=== PATIENT | female | born 1975 | race Caucasian/White ===

== ENCOUNTER 2016-07-07 07:38 | Emergency (ER) | payer MEDICAID ==
--- NOTE | 2016-07-07 07:55 | Emergency Department Record ---
History of Present Illness - General Chief complaint: Pain Stated complaint: KIDNEY SURGERY RECENTLY Time Seen by Provider: 07/07/16 07:54 Source: Patient Mode of Arrival: Ambulatory Limitations: No limitations - History of Present Illness Initial comments: The patient is here due to not feeling well for one day. She has felt slightly weak and chilled off and on since last night. The patient states she had Kidney [place] 6 [place] [facility] [place] and had a robotic kidney cyst removal and a bladder sling placed. She is concerned something may be wrong due to not feeling well now. There has been no fever, vomiting, dysuria, diarrhea, but she is having slightly more R kidney area pain at times. MD Complaint: Other Onset/Timin -: Days(s) Location: Right, Other History of Same: No Radiation: None Severity scale (1-10): 4 Consistency: Constant Improves with: Nothing Worsens with: Nothing Associated Symptoms: Denies other symptoms - Related Data Home Medications Medication Instructions Recorded Confirmed Last Taken Cyanocobalamin (Vitamin B-12) 1 tab PO DAILY 08/09/15 07/07/16 Unknown [Vitamin B-12] Allopurinol 100 mg PO BID tab 09/06/15 07/07/16 Unknown Hydrochlorothiazide 12.5 mg PO QD cap 09/06/15 07/07/16 Unknown Lactobacillus Combo No.11 1 each PO DAILY 09/06/15 07/07/16 Unknown [Probiotic] Potassium Citrate [Potassium 10 meq PO BID 09/06/15 07/07/16 Unknown Citrate Er] Docusate Sodium [Colace] 100 mg PO DAILY 07/07/16 07/07/16 Unknown Hydrocodone/Acetaminophen 1 tab PO Q6H 07/07/16 07/07/16 Unknown [Hydrocodon-Acetaminophen 5-325] Previous Rx's Medication Instructions Recorded Sulfamethoxazole/Trimethoprim 1 tab PO BID #14 tab 07/07/16 [Bactrim Ds] Sulfamethoxazole/Trimethoprim 1 tab PO BID #14 tab 07/07/16 [Bactrim Ds] Allergies Allergy/AdvReac Type Severity Reaction Status Date / Time Neuromuscular Blockers, Allergy Severe BEHAVIORAL Verified 07/07/16 07:53 Steroidal CHANGES [Steroidal Neuromuscular Blockers] ciprofloxacin Allergy Intermediate RASH Verified 07/07/16 07:53 morphine Allergy Intermediate hives Verified 07/07/16 07:53 Travel Screening - Travel/Exposure Within Last 30 Days Have you traveled within the last 30 days?: No Review of Systems Constitutional: Reports: Chills, Malaise. Denies: Fever Eyes: Denies: Eye discharge ENT: Reports: Throat pain (since surgery.). Denies: Congestion Respiratory: Denies: Cough, Dyspnea Cardiovascular: Denies: Arrhythmia, Chest pain Past Medical History - SOCIAL HISTORY Smoking Status: Never smoker Alcohol Use: None Drug Use: None - RESPIRATORY Hx Respiratory Disorders: Yes Hx Pneumonia: Yes - CARDIOVASCULAR Hx Cardio Disorders: No - NEURO Hx Neuro Disorders: Yes Hx Headaches: Yes - GI Hx GI Disorders: Yes Comment:: ulcertive colitis - Hx Genitourinary Disorders: Yes Hx Bladder Problem: Yes Comment:: kidney cyst, medullary sponge dx - ENDOCRINE Hx Endocrine Disorders: Yes Hx Thyroid Disease: Yes (thyroid CA) Comment:: hasimoto's thyroiditis - MUSCULOSKELETAL Hx Musculoskeletal Disorders: Yes Hx Arthritis: Yes Comment:: neck - PSYCH Hx Anxiety: Yes Comment:: OCD - HEMATOLOGY/ONCOLOGY Hx Hematology/Oncology Disorders: Yes Hx Cancer: Yes Hx Chemotherapy: No Hx Radiation Therapy: No Family Medical History Any Significant Family History?: Yes Hx Heart Disease: Mother Hx Resp Disorders: Mother Physical Exam - General General Appearance: Alert, Oriented x3, Cooperative, No acute distress - Head Head exam: Atraumatic, Normocephalic, Normal inspection - Eye Eye exam: Normal appearance, PERRL - ENT Throat exam: Normal inspection. negative: Tonsillar erythema, Tonsillar exudate - Neck Neck exam: Normal inspection, Full ROM. negative: Tenderness - Respiratory Respiratory exam: Normal lung sounds bilaterally. negative: Respiratory distress - Cardiovascular Cardiovascular Exam: Regular rate, Normal rhythm, Normal heart sounds - GI/Abdominal GI/Abdominal exam: Soft, Normal bowel sounds, Other (The surgical sites appear very clean and healthy with no signs of infection.). negative: Distended, Guarding, Tenderness - Extremities Extremities exam: Normal inspection, Full ROM, Normal capillary refill. negative: Tenderness - Neurological Neurological exam: Normal gait. negative: Abnormal gait Course Vital Signs 07/07/16 07:44 Temperature 97.9 F Pulse Rate 78 Respiratory 16 Rate Blood Pressure 118/86 Pulse Ox 97 - Reevaluation(s) Reevaluation #1: The patient is doing well at this time. She is resting comfortably with no new complaints. 07/07/16 08:40 Reevaluation #2: The patient is doing very well at this time. She is having mild R flank pain but is declining any pain medicines. I did discuss the CT results with her which do appear to have normal post op changes. I also did discuss the eval with Dr. Moreno and he would like the patient on an oral Abx and would like her to F/U as directed. 07/07/16 10:01 Medical Decision Making - Data Complexity MDM Data: Labs Ordered and/or Reviewed, X-Ray Ordered and/or Reviewed - Lab Data Result diagrams: 07/07/16 08:10 07/07/16 08:10 - Radiology Data Radiology results: Report reviewed (CT: Small R pleural effusion, Min inflammation around the R kidney prob normal postop changes. O/W neg.) Disposition Disposition: Discharge Clinical Impression: Post-op pain Disposition: Home, Self-Care Condition: (1) Good Instructions: Flank Pain (ED) Additional Instructions: Please continue your home pain medicines as directed. Continue the Bactrim as directed. Please see Dr. Moreno as previously planned post op. Please see him sooner for any increased pain, fever, or vomiting. Prescriptions: Sulfamethoxazole/Trimethoprim [Bactrim Ds] 1 tab PO BID #14 tab Sulfamethoxazole/Trimethoprim [Bactrim Ds] 1 tab PO BID #14 tab Forms: Patient Portal Access Time of Disposition: 10:04
[2016-07-07] MEDS ORDERED: 0.9 % SODIUM CHLORIDE 1,000 ML BAG IV ONE (07:58)
[2016-07-07 08:19] LABS: BASO % 0.1 % (0-6); EOS % 3.8 % (0-6); GRAN % 71.7 % (47-80); HEMATOCRIT 37.2 % (35.0-47.0); HEMOGLOBIN 12.8 gm/dl (11.6-16.0); LYMPH % 18.3 % (16-45); MEAN CELL VOLUME 88.4 fl (81-97); MEAN CORPUSCULAR HEMOGLOBIN 30.4 pg (27-33); MEAN CORPUSCULAR HGB CONC 34.4 g/dl (32-36); MEAN PLATELET VOLUME 9.8 fl (7.4-10.4); MONO % 6.1 % (0-9); PLATELET COUNT 327 K/uL (130-400); RED BLOOD COUNT 4.21 M/uL (3.80-5.40); RED CELL DISTRIBUTION WIDTH 12.9 % (11.5-14.5); WHITE BLOOD COUNT W/O DIFF 8.2 K/uL (4.2-12.2)
[2016-07-07 08:21] LABS: URINE APPEARANCE CLEAR; URINE BILIRUBIN NEGATIVE (NEGATIVE); URINE BLOOD TRACE-I (NEGATIVE); URINE COLOR YELLOW; URINE GLUCOSE (UA) NEGATIVE (NEGATIVE); URINE KETONE NEGATIVE (NEGATIVE); URINE LEUKOCYTE ESTERASE TRACE (NEGATIVE); URINE NITRITE NEGATIVE (NEGATIVE); URINE PROTEIN NEGATIVE (NEGATIVE); URINE UROBILINOGEN 0.2 E.U./dL (0.20 - 1.00)
[2016-07-07 08:31] LABS: HCG,QUALITATIVE URINE NEGATIVE (NEGATIVE); URINE BACTERIA FEW
[2016-07-07 08:34] LABS: ALKALINE PHOSPHATASE 94 U/L (38-126); ALT/SGPT 81 U/L (9-52); AST/SGOT 31 U/L (14-36); BILIRUBIN,TOTAL 0.39 mg/dL (0.2-1.3); BLOOD UREA NITROGEN 13 mg/dL (7-17); CREATININE 0.6 mg/dL (0.52-1.04); EST GLOMERULAR FILTRATION RATE > 60 ml/min; GLUCOSE,RANDOM 106 mg/dL (70-110); LIPASE 16 U/L (23-300); TOTAL PROTEIN 7.3 gm/dL (6.3-8.2)
[2016-07-07] MEDS ORDERED: TMP/SMZ 160MG/800MG TAB PO ONE (09:52)
== END 2016-07-07 10:26 | disposition home or self-care (01) ==
LOC: ER 07:38
DX: N23 Unspecified renal colic (principal); G89.18 Other acute postprocedural pain
CPT/HCPCS: 99284 ×2; 83690; 85025; 80076; 80048; 81001; 81025; 74176; J3490; J7030

== ENCOUNTER 2017-01-08 08:05 | Day surgery (SDC) | payer MEDICAID ==
--- NOTE | 2017-01-08 13:24 | ULTRASOUND REPORT ---
EXAM: ABDOMEN ULTRASOUND HISTORY: CHRONIC GENERALIZED ABDOMINAL PAIN. TECHNIQUE: Real-time nicholas scale sonographic imaging of the abdomen was performed. Comparison: Abdomen CT 07/07/16. FINDINGS: Uniformly echogenic focus in the right lobe of the liver measuring 2.3 cm with corresponding hypodensity in the right lobe of the liver on CT's dating back to 2015 consistent with benign hemangioma. The remaining liver is homogeneous. The spleen is not enlarged and appears homogeneous. No biliary dilatation. The common duct measures 3.5 mm, within normal limits. The gallbladder is normal without gallstones, gallbladder wall thickening, or pericholecystic fluid. Sonographic Hook's sign is negative. The kidneys demonstrate cortical thinning bilaterally. Unilocular parapelvic anechoic cyst upper pole right kidney measures 3.6 cm. No calculi or hydronephrosis. The right kidney measures 12.0 x 5.0 x 6.2 cm and the left kidney measures 11.5 x 4.6 x 5.4 cm. The pancreas is not optimally seen due to poor penetration although appears grossly normal. The abdominal aorta and IVC are patent. IMPRESSION: 1. NORMAL GALLBLADDER WITH NO BILIARY DILATATION. 2. STABLE BENIGN HEMANGIOMA IN THE RIGHT LOBE OF THE LIVER. 3. BENIGN PARAPELVIC RIGHT RENAL CYST. 4. SLIGHT CORTICAL THINNING OF THE KIDNEYS BILATERALLY. JOB NUMBER: [id number] MTDD
[2017-01-08] MEDS ORDERED: PROPOFOL 10 MG/ML VIAL IV ONE (16:09)
[2017-01-08] MEDS ORDERED: FENTANYL PF 100MCG/2ML VIAL IV ONE (16:09)
[2017-01-08] MEDS ORDERED: LIDOCAINE 2% MDV (20MG/ML) 20ML VIAL IV ONE (16:09)
--- NOTE | 2017-01-14 10:20 | Operative Note ---
DATE OF SURGERY: 01/08/2017 REFERRING PROVIDER: CHARLES Marrero PREOPERATIVE DIAGNOSIS: Epigastric pain, questionable history of ulcerative colitis. POSTOPERATIVE DIAGNOSES: 1. Normal EGD. Rule out H. pylori. 2. Normal colonoscopy. Rule out ulcerative colitis and dysplasia. OPERATION: 1. ESOPHAGOGASTRODUODENOSCOPY with biopsy. 2. COLONOSCOPY with biopsy. PROCEDURE: After informed consent was obtained, the patient was placed in the left lateral decubitus position in the endoscopy suite, sedated and monitored by the Department of Anesthesia. Once sedated, a well-lubricated SDU501 gastroscope was placed in the posterior oropharynx and under direct visualization passed to the proximal esophagus. The endoscope was advanced to the proximal, mid and distal esophagus. The esophagus and GE junction were unremarkable. The gastric body demonstrated normal distensibility. Normal rugal folds. The body, antrum, pylorus, duodenal bulb and sweep were unremarkable. J-turn views of the proximal stomach were unrevealing. The endoscope was then straightened. The antrum was biopsied. The endoscope was then retracted through the course of the proximal stomach and esophagus. No new findings or abnormalities were identified. Digital rectal exam was unremarkable. A well-lubricated PCF-180 colonoscope was inserted into the rectum and advanced to the cecum. The preparation quality was good. The cecum, terminal ileum, ascending colon, transverse colon, descending colon, sigmoid colon, and rectum were carefully inspected. No polyps, mass lesions or inflammation was seen. No scarring changes were noted. No evidence of burnt-out colitis was identified. Random biopsies were obtained from throughout the length of the colon. J-turn views of the anorectum were unremarkable. The endoscope was straightened, the rectal ampulla deflated and the endoscope was removed. RECOMMENDATIONS: Will await the results of biopsies, but at this point I question this diagnosis of chronic colitis. If her dyspepsia persists, perhaps an ultrasound and/or HIDA scan would be helpful. At minimum, she should undergo repeat colonoscopy in 10 years. As always, thank you for allowing me to participate in the health care of your patients. CC: CHARLES Marrero [facility]
== END 2017-01-08 10:21 | disposition home or self-care (01) ==
LOC: HOP 08:05
PROVIDERS: ATTEND Internal Medicine Gastroenterology
DX: R10.13 Epigastric pain (principal); N28.9 Disorder of kidney and ureter, unspecified; E03.9 Hypothyroidism, unspecified
CPT/HCPCS: 45380; 00810; 76700; J3010

== ENCOUNTER → 2018-01-25 | Day surgery (SDC) | payer BC ==
[~2018-01-25] MED LIST: ACETAMINOPHEN 1,000 MG/100 ML BTL IV ONE; BUPIVACAINE 0.25% W/EPI MPF 30ML VIAL IVP ONE; FAMOTIDINE 20MG TABLET PO ONE; FENTANYL PF 100MCG/2ML VIAL IV ONE; LIDOCAINE 2% MDV (20MG/ML) 20ML VIAL IV ONE; MECLIZINE 25 MG TABLET PO ONE; METOCLOPRAMIDE 10 MG TABLET PO ONE; MIDAZOLAM HCL 2MG/2ML VIAL IV ONE; PROPOFOL 10 MG/ML VIAL IV ONE
--- NOTE | 2018-01-27 09:30 | Operative Note ---
DATE OF SURGERY: 01/25/2018 Surgeon: Payam Marie DO PREOPERATIVE DIAGNOSIS: Back mass. POSTOPERATIVE DIAGNOSIS: Back mass. OPERATION: Excision of back mass measuring 4 x 2 cm down to the fascia. Indication: The patient is a 42-year-old female who presented with a mass on her back. This had the characteristics of a probable ruptured sebaceous cyst. Risks, benefits, and alternatives were discussed. Risks include bleeding, infection, recurrence. She understood this fully. Thereafter, consent was signed and questions answered. PROCEDURE: The patient was taken to the operating room and placed in a supine position. She was rotated into left lateral position. Her back was prepped and draped in the usual fashion. The area around the mass was anesthetized with a total of 10 mL of 0.25% Sensorcaine with epinephrine. An elliptical incision was made around the mass incorporating the puncta. This was carried down to a cavity of a ruptured sebaceous cyst. This was fully excised. This measured 4 x 2 cm down to the fascia. The wound was then irrigated. It was packed with iodoform. The proximal and distal ends were closed with 3-0 Vicryl and 3-0 nylon. She was taken to recovery in satisfactory condition. Wound instructions were given. She was also sent home on a prescription for Keflex. Thank you for this referral. CC: EMY Appiah
== END | disposition home or self-care (01) ==
LOC: SUR 07:06
PROVIDERS: ATTEND Surgery
DX: R22.2 Localized swelling, mass and lump, trunk (principal); K21.9 Gastro-esophageal reflux disease without esophagitis
CPT/HCPCS: 21932; 00300; J3010

== ENCOUNTER 2018-11-23 11:28 | Emergency (ER) | payer BC ==
--- NOTE | 2018-11-23 11:48 | Emergency Department Record ---
History of Present Illness - General Chief Complaint: Headache Migraine Stated Complaint: Headache Time Seen by Provider: 11/23/18 11:33 Source: Patient Mode of Arrival: Wheelchair Limitations: No limitations - History of Present Illness Initial Comments: pt has had a adams for 3 days that is worse and different then her previous migraines. it started gradually. she feels 'stupid' and off and dizzy. Complaint: Headache Onset/Timin -: Days(s) Onset Description: Gradual Location: Frontal Severity: Moderate, Severe Severity scale (1-10): 6 Quality: Aching, Full, Different than previous headaches Consistency: Constant, Getting worse Improves With: Nothing Associated Symptoms: Confusion, Nausea, Neck stiffness, Photophobia, Tingling/numbness Treatment Prior to Arrival Comment:: tylenol/sinus meds/ - Symptoms of Stroke Symptoms of stroke: Dizziness - Related Data Previous Rx's Medication Instructions Recorded Meclizine HCl [Antivert] 25 mg PO Q8H #14 tablet 11/23/18 Allergies Allergy/AdvReac Type Severity Reaction Status Date / Time scopolamine Allergy Severe vomiting Unverified 11/23/18 11:06 ciprofloxacin Allergy Intermediate RASH Unverified 11/23/18 11:06 morphine Allergy Intermediate hives Unverified 11/23/18 11:06 Corticosteroids AdvReac steroid Unverified 11/23/18 11:06 (Glucocorticoids) induced psychosis Travel Screening - Travel/Exposure Within Last 30 Days Have you traveled within the last 30 days?: No - Travel/Exposure Within Last Year Have you traveled outside the [place] in the last year?: No - Additonal Travel Details Have you been exposed to anyone with a communicable illness?: No - Travel Symptoms Symptom Screening: None Review of Systems Reviewed: No additional complaints except as noted below Constitutional: Reports: As per HPI. Denies: Chills, Fever, Malaise, Night sweats, Weakness, Weight change Eyes: Reports: As per HPI. Denies: Eye discharge, Eye pain, Photophobia, Vision change ENT: Reports: As per HPI. Denies: Congestion, Dental pain, Ear pain, Epistaxis, Hearing loss, Throat pain Respiratory: Reports: As per HPI. Denies: Cough, Dyspnea, Hemoptysis, Stridor, Wheezes Cardiovascular: Reports: As per HPI. Denies: Arrhythmia, Chest pain, Dyspnea on exertion, Edema, Murmurs, Orthopnea, Palpitations, Paroxysmal nocturnal dyspnea, Rheumatic Fever, Syncope Endocrine: Reports: As per HPI. Denies: Fatigue, Heat or cold intolerance, Polydipsia, Polyuria Gastrointestinal: Reports: As per HPI. Denies: Abdominal pain, Constipation, Diarrhea, Hematemesis, Hematochezia, Melena, Nausea, Vomiting Genitourinary: Reports: As per HPI. Denies: Abnormal menses, Discharge, Dyspareunia, Dysuria, Frequency, Hematuria, Incontinence, Retention, Urgency Musculoskeletal: Reports: As per HPI. Denies: Arthralgia, Back pain, Gout, Joint swelling, Myalgia, Neck pain Skin: Reports: As per HPI. Denies: Bruising, Change in color, Change in hair/nails, Lesions, Pruritus, Rash Neurological: Reports: As per HPI. Denies: Abnormal gait, Confusion, Headache, Numbness, Paresthesias, Seizure, Tingling, Tremors, Vertigo, Weakness Psychiatric: Reports: As per HPI. Denies: Anxiety, Auditory hallucinations, Depression, Homicidal thoughts, Suicidal thoughts, Visual hallucinations Hematological/Lymphatic: Reports: As per HPI. Denies: Anemia, Blood Clots, Easy bleeding, Easy bruising, Swollen glands Past Medical History - SOCIAL HISTORY Smoking Status: Never smoker Alcohol Use: Rare, Occasional Drug Use: None - RESPIRATORY Hx Respiratory Disorders: Yes Hx Pneumonia: Yes - CARDIOVASCULAR Hx Cardio Disorders: No - NEURO Hx Neuro Disorders: Yes Hx Headaches: Yes - GI Hx GI Disorders: Yes Hx Reflux: Yes Hx Hiatal Hernia: Yes (repaired) Comment:: ulcertive colitis - Hx Genitourinary Disorders: Yes Hx Bladder Problem: No Hx Kidney Stones: Yes Hx Renal Disease: Yes Comment:: kidney cyst, medullary sponge dx - ENDOCRINE Hx Endocrine Disorders: Yes Hx Thyroid Disease: Yes (thyroid CA thyroidectomy) Comment:: hasimoto's thyroiditis - MUSCULOSKELETAL Hx Musculoskeletal Disorders: Yes Hx Arthritis: Yes Comment:: neck - PSYCH Hx Psych Problems: Yes Hx Anxiety: Yes Comment:: OCD - HEMATOLOGY/ONCOLOGY Hx Hematology/Oncology Disorders: Yes Hx Cancer: Yes (thyroid) Hx Chemotherapy: No Hx Radiation Therapy: No Family Medical History Any Significant Family History?: Yes Hx Heart Disease: Mother Hx Resp Disorders: Mother Physical Exam - General General Appearance: Alert, Oriented x3, Cooperative, Mild distress - Head Head exam: Normal inspection - Eye Eye exam: Normal appearance, PERRL, EOMI Pupils: Normal accommodation - ENT ENT exam: Normal exam, Mucous membranes moist, Normal external ear exam, Normal orophraynx Ear exam: Normal external inspection. negative: External canal tenderness Nasal Exam: Normal inspection. negative: Discharge, Sinus tenderness Mouth exam: Normal external inspection, Tongue normal Teeth exam: Normal inspection. negative: Dental caries Throat exam: Normal inspection. negative: Tonsillar erythema, Tonsillar exudate - Neck Neck exam: Normal inspection, Full ROM. negative: Tenderness - Respiratory Respiratory exam: Normal lung sounds bilaterally. negative: Respiratory distress - Cardiovascular Cardiovascular Exam: Regular rate, Normal rhythm, Normal heart sounds - GI/Abdominal GI/Abdominal exam: Soft, Normal bowel sounds. negative: Tenderness - Rectal Rectal exam: Deferred - exam: Deferred - Extremities Extremities exam: Normal inspection, Full ROM, Normal capillary refill. negative: Tenderness - Back Back exam: Reports: Normal inspection, Full ROM. Denies: Muscle spasm, Rash noted, Tenderness - Neurological Neurological exam: Alert, CN II-XII intact, Normal gait, Oriented X3 - Psychiatric Psychiatric exam: Normal affect, Normal mood - Skin Skin exam: Dry, Intact, Normal color, Warm Course Vital Signs 11/23/18 11:30 Temperature 97.9 F Pulse Rate 67 Respiratory 18 Rate Blood Pressure 128/79 Pulse Ox 98 - Reevaluation(s) Reevaluation #1: 11/23/18 13:32 pt feels much better Medical Decision Making - Lab Data Result diagrams: 11/23/18 11:28 11/23/18 11:28 Disposition Disposition: Discharge Clinical Impression: Vertigo Migraine Qualifiers: Migraine type: unspecified Status migrainosus presence: with status migrainosus Intractability: intractable Qualified Code(s): G43.911 - Migraine, unspecified, intractable, with status migrainosus Disposition: Home, Self-Care Condition: (1) Good Instructions: Migraine Headache (ED), Vertigo (ED) Additional Instructions: follow up with family doctor and with neurologist. return sooner if worse Prescriptions: Meclizine HCl [Antivert] 25 mg PO Q8H #14 tablet Forms: Patient Portal Access Quality - Quality Measures Quality Measures: N/A - Blood Pressure Screening Does Patient Have Any of the Following: No Blood Pressure Classification: Pre-Hypertensive BP Reading Systolic Measurement: 128 Diastolic Measurement: 79 Screening for High Blood Pressure: < Pre-Hypertensive BP, F/U Documented > [G895 0] Pre-Hypertensive Follow-up Interventions: Follow-up with rescreen every year.
[2018-11-23] MEDS ORDERED: HYDROMORPHONE HCL 2 MG/ML VIAL IVP ONE (12:01)
[2018-11-23] MEDS ORDERED: ONDANSETRON HCL IV 4 MG/2 ML VIAL IVP ONE (12:01)
[2018-11-23 12:06] LABS: ABSOLUTE NEUTROPHIL COUNT 3.31; EOS % 0.5 % (0-6); GRAN % 59.7 % (47-80); HEMATOCRIT 37.5 % (35.0-47.0); HEMOGLOBIN 12.7 gm/dl (11.6-16.0); LYMPH % 33.8 % (16-45); MEAN CORPUSCULAR HEMOGLOBIN 30.8 pg (27-33); MEAN CORPUSCULAR HGB CONC 33.9 g/dl (32-36); PLATELET COUNT 303 K/uL (130-400); RED BLOOD COUNT 4.12 M/uL (3.80-5.40); RED CELL DISTRIBUTION WIDTH 12.5 % (11.5-14.5); WHITE BLOOD COUNT W/O DIFF 5.5 K/uL (4.2-12.2)
[2018-11-23 12:14] LABS: BLOOD UREA NITROGEN 10 mg/dL (6-20); CREATININE 0.5 mg/dL (0.5-0.9); EST GLOMERULAR FILTRATION RATE > 60 mL/min
[2018-11-23 12:16] LABS: GLUCOSE,RANDOM 92 mg/dL (74-109)
[2018-11-23 12:19] LABS: ALB/GLOB RATIO 1.7 (1.1-1.8); ALBUMIN 4.4 g/dL (4.0-5.0); ALKALINE PHOSPHATASE 67 U/L (35-104); ALT/SGPT 15 U/L (<33); AST/SGOT 13 U/L (10.0-35.0)
[2018-11-23] MEDS ORDERED: MECLIZINE 25 MG TABLET PO ONE (12:50)
[2018-11-23] MEDS ORDERED: KETOROLAC 30 MG/ML VIAL IVP ONE (12:50)
--- NOTE | 2018-11-24 18:56 | CT SCAN REPORT ---
EXAM: CT SCAN HEAD WO CONTRAST HISTORY: SEVERE HEADACHE FOR THREE DAYS. TECHNIQUE: Routine noncontrast CT of the brain. COMPARISON: CT head without contrast dated 03/20/2014. FINDINGS: The ventricles and subarachnoid spaces remain normal in size. No area of abnormally increased or decreased attenuation is noted throughout the brain substance. The nicholas-white interfaces are distinct. No abnormal extraaxial fluid collection is seen. There is minimal mucosal thickening within the posterior aspect of the left maxillary sinus. The visualized paranasal sinuses and mastoid air cells are otherwise clear. The orbits as visualized are unremarkable. IMPRESSION: 1. NO INTRACRANIAL ABNORMALITY IDENTIFIED WITHOUT CHANGE IN APPEARANCE OF THE BRAIN SINCE 03/20/2014. 2. MINIMAL MUCOSAL THICKENING IN THE LEFT MAXILLARY SINUS. JOB NUMBER: [id number] MTDD
== END 2018-11-23 13:42 | disposition home or self-care (01) ==
LOC: ER 11:28
DX: G43.911 Migraine, unspecified, intractable, with status migrainosus (principal); R42 Dizziness and giddiness; R11.0 Nausea
CPT/HCPCS: 99284 ×2; 96374; 96375; 85025; 85651; 80053; 84443; 70450; 93005; 93010; J1885; J2405; J1170

== ENCOUNTER 2018-12-20 09:25 | Day surgery (SDC) | payer BC ==
[~2018-12-20 09:25] MED LIST changes: -ACETAMINOPHEN 1,000 MG/100 ML BTL IV ONE; +ACETAMINOPHEN 1,000 MG/100 ML BTL IVPB ONE; -BUPIVACAINE 0.25% W/EPI MPF 30ML VIAL IVP ONE; -FAMOTIDINE 20MG TABLET PO ONE; -FENTANYL PF 100MCG/2ML VIAL IV ONE; -LIDOCAINE 2% MDV (20MG/ML) 20ML VIAL IV ONE; -MECLIZINE 25 MG TABLET PO ONE; -METOCLOPRAMIDE 10 MG TABLET PO ONE; -MIDAZOLAM HCL 2MG/2ML VIAL IV ONE; -PROPOFOL 10 MG/ML VIAL IV ONE
[2018-12-20] MEDS ORDERED: PROPOFOL 10 MG/ML VIAL IV ONE (09:26)
[2018-12-20] MEDS ORDERED: FENTANYL PF 100MCG/2ML VIAL IV ONE (09:26)
[2018-12-20] MEDS ORDERED: LIDOCAINE 2% MDV (20MG/ML) 20ML VIAL IV ONE (09:26)
[2018-12-20] MEDS ORDERED: MIDAZOLAM HCL 2MG/2ML VIAL IV ONE (09:26)
[2018-12-20] MEDS ORDERED: RINGERS SOLUTION,LACTATED 1,000 ML IV ONE (09:40)
[2018-12-20] MEDS ORDERED: BUPIVACAINE 0.25% W/EPI MPF 30ML VIAL SQ ONE (10:27)
[2018-12-20] MEDS ORDERED: HYDROCODONE/APAP 5/325MG TABLET PO ONE (11:15)
[2018-12-20] MEDS ORDERED: 0.9 % SODIUM CHLORIDE 1000ML 1,000 ML IV ONE (11:18)
--- NOTE | 2018-12-21 13:10 | Operative Note ---
DATE OF SURGERY: 12/20/2018 SURGEON: Payam Marie DO PREOPERATIVE DIAGNOSES: 1. Left inguinal mass. 2. Right becerra mass. POSTOPERATIVE DIAGNOSES: 1. Left inguinal mass. 2. Right becerra mass. OPERATION: 1. Excision of left inguinal mass. 2. Excision of right becerra mass. INDICATION: The patient is a 43-year-old female who had a palpable mass in her left groin. Ultrasound was done that did show probable lipoma. The patient also had a right becerra mass. We did discuss excision. Risks, benefits, and alternatives were discussed. Risks include bleeding, infection, recurrence. She understood this fully. Thereafter, consent was signed and questions answered. PROCEDURE: The patient was taken to the operating room and placed in a supine position. Local with IV sedation was given per the department of anesthesia. The patient's left groin and left becerra were prepped and draped in the usual fashion. Starting at the left groin, the area over the mass was anesthetized with a total of 5 mL of 0.25% Sensorcaine with epinephrine. A 2 cm incision was made. This was carried down to what appeared to be a large lipoma. This was dissected free from the surrounding tissue and passed off the field. This measured about 4 cm into the subcu. This wound was closed with 3-0 and 4-0 Vicryl. Attention was now turned to the right becerra, and this area was anesthetized with an additional 3 mL of 0.25% Sensorcaine with epinephrine. A 1 cm incision was made. This was carried down to the capsule of what appeared to be a sebaceous cyst. This was dissected free from the surrounding tissue and passed off the field without rupture. This wound was closed with 3-0 nylon. Steri-Strips were placed in the groin. She was taken to the recovery room in stable condition. Final pathology pending. [facility]
== END 2018-12-20 11:30 | disposition home or self-care (01) ==
LOC: SUR 09:25
PROVIDERS: ATTEND Surgery
DX: R22.2 Localized swelling, mass and lump, trunk (principal); R22.41 Localized swelling, mass and lump, right lower limb
CPT/HCPCS: J7030; J7120

== ENCOUNTER 2018-12-31 19:34 | Emergency (ER) | payer BC ==
[2018-12-31] MEDS ORDERED: CLINDAMYCIN 600MG/50ML PREMIX 600 MG/50 ML BAG IVPB ONE (19:47)
--- NOTE | 2018-12-31 19:54 | Emergency Department Record ---
History of Present Illness - General Stated complaint: RT LEG PAIN Time Seen by Provider: 12/31/18 19:40 Source: Patient Mode of Arrival: Ambulatory Limitations: No limitations - History of Present Illness Initial comments: 43 yo female presents with some redness and warmth of the right leg. She recently had small skin lesion on her right lower leg removed by Dr Marie. She developed some drainage and the wound open about two days ago. She has had two doses of Keflex with continued warmth and redness. No pus. No fever. No streaking up the leg. MD complaint: Abscess/boil -: Days(s) Location: RLE Severity: Moderate Quality: Aching Consistency: Constant Improves with: None Worsens with: None Context: Other (Recent surgery) Associated symptoms: Denies other symptoms Treatments Prior to Arrival: None - Related Data Home Medications Medication Instructions Recorded Confirmed Last Taken Loratadine 10 mg PO 12/31/18 12/31/18 Previous Rx's Medication Instructions Recorded Clindamycin HCl 300 mg PO QID #28 capsule 12/31/18 Allergies Allergy/AdvReac Type Severity Reaction Status Date / Time scopolamine Allergy Severe vomiting Verified 12/31/18 19:47 ciprofloxacin Allergy Intermediate RASH Verified 12/31/18 19:47 morphine Allergy Intermediate hives Verified 12/31/18 19:47 Corticosteroids AdvReac steroid Verified 12/31/18 19:47 (Glucocorticoids) induced psychosis Review of Systems Constitutional: Denies: Chills, Fever, Malaise, Weakness Eyes: Denies: Eye discharge, Eye pain, Photophobia, Vision change ENT: Denies: Congestion, Throat pain Respiratory: Denies: Cough, Dyspnea Cardiovascular: Denies: Chest pain, Syncope Endocrine: Denies: Fatigue, Polydipsia, Polyuria Gastrointestinal: Denies: Abdominal pain, Diarrhea, Nausea, Vomiting Genitourinary: Denies: Dysuria, Urgency Musculoskeletal: Reports: Myalgia. Denies: Arthralgia, Back pain, Joint swelling, Neck pain Skin: Reports: Change in color. Denies: Bruising Neurological: Denies: Weakness Psychiatric: Denies: Anxiety Hematological/Lymphatic: Denies: Easy bleeding, Easy bruising Past Medical History - SOCIAL HISTORY Smoking Status: Never smoker - RESPIRATORY Hx Respiratory Disorders: Yes Hx Pneumonia: Yes (2003 AND 2014) - CARDIOVASCULAR Hx Cardio Disorders: No - NEURO Hx Neuro Disorders: Yes Hx Headaches: Yes Hx of Migraines: Yes (OCCASSIONALLY) - GI Hx GI Disorders: Yes Hx Reflux: No Hx Hiatal Hernia: Yes (repaired) Comment:: ulcertive colitis HX OF - Hx Genitourinary Disorders: Yes Hx Bladder Problem: No Hx Kidney Stones: Yes Hx Renal Disease: Yes Comment:: kidney cyst, medullary sponge dx - ENDOCRINE Hx Endocrine Disorders: Yes Hx Thyroid Disease: Yes (thyroid CA thyroidectomy) Comment:: hasimoto's thyroiditis - MUSCULOSKELETAL Hx Musculoskeletal Disorders: Yes Hx Arthritis: Yes (LOW BACK) - PSYCH Hx Psych Problems: Yes Hx Anxiety: Yes Hx Depression: Yes Comment:: OCD - HEMATOLOGY/ONCOLOGY Hx Hematology/Oncology Disorders: Yes Hx Cancer: Yes (thyroid) Hx Chemotherapy: No Hx Radiation Therapy: No Family Medical History Hx Heart Disease: Mother Hx Resp Disorders: Mother Physical Exam - General General Appearance: Alert, Oriented x3, Cooperative, No acute distress Limitations: No limitations - Head Head exam: Atraumatic - Eye Eye exam: Normal appearance, Conjunctival injection - ENT ENT exam: Normal exam Ear exam: Normal external inspection Nasal Exam: Normal inspection Mouth exam: Normal external inspection - Neck Neck exam: Normal inspection - Cardiovascular Peripheral Pulses: 2+: Dorsalis Pedis (R) - Rectal Rectal exam: Deferred - exam: Deferred - Extremities Extremities exam: Full ROM, Normal capillary refill. negative: Normal inspection, Calf tenderness, Joint swelling, Pedal edema, Tenderness Image of Full Body: 1 - erythema, soft. 2cm open wound. no pus. clear serosangenous fluid - Neurological Neurological exam: Alert, Oriented X3 - Psychiatric Psychiatric exam: Normal affect, Normal mood - Skin Skin exam: Erythema Course Vital Signs 12/31/18 19:41 Temperature 97.6 F Pulse Rate [ 70 Right] Respiratory 20 Rate Blood Pressure 127/80 [Left Arm] Pulse Ox 100 Medical Decision Making - Lab Data Result diagrams: 12/31/18 20:12 12/31/18 20:12 Disposition Disposition: Discharge Clinical Impression: Cellulitis Disposition: Home, Self-Care Condition: (1) Good Instructions: Cellulitis (ED) Additional Instructions: Take the antibiotics as directed Add the Clindamycin as directed Return if worse, fever, pain or pus Keep the leg elevated and us warm compresses Follow up with Dr Marie first of the week for a recheck. Prescriptions: Clindamycin HCl 300 mg PO QID #28 capsule Forms: Patient Portal Access Time of Disposition: 20:47 Quality - Quality Measures Quality Measures: N/A - Blood Pressure Screening Does Patient Have Any of the Following: No Blood Pressure Classification: Normal BP Reading Systolic Measurement: 112 Diastolic Measurement: 79 Screening for High Blood Pressure: < Normal BP, F/U Not Required > [[id number]]
[2018-12-31 20:20] LABS: ABSOLUTE NEUTROPHIL COUNT 5.03; BASO % 0.1 % (0-6); EOS % 1.6 % (0-6); GRAN % 63.5 % (47-80); HEMATOCRIT 34.2 % (35.0-47.0); HEMOGLOBIN 11.5 gm/dl (11.6-16.0); LYMPH % 27.9 % (16-45); MEAN CELL VOLUME 91.4 fl (81-97); MEAN CORPUSCULAR HEMOGLOBIN 30.7 pg (27-33); MEAN CORPUSCULAR HGB CONC 33.6 g/dl (32-36); MEAN PLATELET VOLUME 9.6 fl (7.4-10.4); MONO % 6.9 % (0-9); PLATELET COUNT 249 K/uL (130-400); RED BLOOD COUNT 3.74 M/uL (3.80-5.40); RED CELL DISTRIBUTION WIDTH 12.1 % (11.5-14.5); WHITE BLOOD COUNT W/O DIFF 7.9 K/uL (4.2-12.2)
[2018-12-31 20:34] LABS: BLOOD UREA NITROGEN 16 mg/dL (6-20); CREATININE 0.6 mg/dL (0.5-0.9); EST GLOMERULAR FILTRATION RATE > 60 mL/min
[2018-12-31 20:37] LABS: GLUCOSE,RANDOM 110 mg/dL (74-109)
== END 2018-12-31 21:35 | disposition home or self-care (01) ==
LOC: ER 19:34
DX: T81.49XA Infection following a procedure, other surgical site, initial encounter (principal); L03.115 Cellulitis of right lower limb
CPT/HCPCS: 80048; 85025; 86140; 96365; 99283; 99284